=== PATIENT | male | born 1960 | race Caucasian/White ===

== ENCOUNTER → 2020-12-09 10:01 | Outpatient (BNVA) | payer MEDICARE, SELFPAY | PROVIDERS: Family Provider Family Medicine; PCP Family Medicine; Visit Provider Urology | DX: N31.9 Neuromuscular dysfunction of bladder, unspecified (principal); Z12.5 Encounter for screening for malignant neoplasm of prostate; R33.9 Retention of urine, unspecified; N40.1 Benign prostatic hyperplasia with lower urinary tract symptoms; N13.8 Other obstructive and reflux uropathy | CPT/HCPCS: G0103 ==

== ENCOUNTER → 2021-07-11 09:26 | Outpatient (BNVA) | payer MEDICARE, SELFPAY | PROVIDERS: Family Provider Family Medicine; PCP Family Medicine; Visit Provider Emergency Medicine | DX: Z46.6 Encounter for fitting and adjustment of urinary device (principal); Z97.8 Presence of other specified devices; Z79.899 Other long term (current) drug therapy | CPT/HCPCS: 81000; 87086 ==

== ENCOUNTER 2021-07-22 08:51 | Outpatient (CLI) | payer MEDICARE, SELFPAY ==
--- NOTE | 2021-07-22 14:07 | PFTS_ITS ---
Date of Study:07/22/21 Date of Dictation: 07/27/2021 MECHANICS: Postbronchodilator forced vital capacity (FVC) is reduced 2.32 L 51% predicted Postbronchodilator forced expiratory volume in one second (FEV1) is very severely reduced. 750 mL 21% predicted. FEV1/FVC is reduced. There is no significant bronchodilator response. FLOW VOLUME LOOP: Slanting of expiratory limb suggestive of severe airflow obstruction . LUNG VOLUMES: Total lung capacity (TLC) is increased. Residual volume (RV) is increased suggestive of severe air trapping. DIFFUSING CAPACITY FOR CARBON MONOXIDE: Severely reduced 36 % INTERPRETATION: The pulmonary function tests are consistent with very severe airflow obstruction on spirometry with no significant response to bronchodilators, severe air trapping and hyperinflation on lung volumes and severe gas transfer defect consistent with severe COPD/emphysema. Correlate clinically. MTDD
== END 2021-07-22 08:52 | disposition home or self-care (01) ==
PROVIDERS: PCP Family Medicine; Visit Provider Internal Medicine Pulmonary Disease
DX: J44.9 Chronic obstructive pulmonary disease, unspecified (principal)
CPT/HCPCS: 94060; 94726; 94729; J7611

== ENCOUNTER → 2022-12-02 14:27 | Outpatient (BNVA) | payer MEDICARE, SELFPAY | PROVIDERS: PCP Family Medicine; Visit Provider Nurse Practitioner Family | DX: D22.62 Melanocytic nevi of left upper limb, including shoulder (principal); L81.4 Other melanin hyperpigmentation; L82.1 Other seborrheic keratosis; L08.9 Local infection of the skin and subcutaneous tissue, unspecified | CPT/HCPCS: 11102; 99203 ==

== ENCOUNTER → 2022-12-09 16:23 | Outpatient (BNVA) | payer MEDICARE, SELFPAY | PROVIDERS: PCP Family Medicine; Visit Provider Nurse Practitioner Family | DX: B35.2 Tinea manuum (principal) | CPT/HCPCS: 80053; 85025 ==